=== PATIENT | male | born 1960 | race Caucasian/White ===

== ENCOUNTER 2018-02-10 00:28 | Outpatient (CLI) | payer BC, SELFPAY ==
--- NOTE | 2018-02-10 09:00 | DI.US_ITS ---
SYMPTOMS/DIAGNOSIS: ELEVATED PAS, R97.20 PROSTATE BIOPSY: Sonography was utilized by Dr. Guillory during the performance of a transrectal ultrasound-guided prostate biopsy. Prostatic volume was 21 cc. Please refer to the procedure report for complete details.
--- NOTE | 2018-02-10 09:30 | PROST_PTH ---
PATIENT: Marissa Rodríguez LOC: [facility] U#:[id number] AGE/SX: 57/M ROOM: RE02/10/[address]: Gianfranco Guillory MD : 1960 BED: DIS: 02/10/2018 SPEC #: [id number] RECD: 02/10/18 12:52 STATUS: SEDA REQ #: [id number] [place]: 02/10/18 09:[address]: Gianfranco Guillory DEPT: Surgical Specimen RECD BY: Karley Escobar ENTERED: 02/10/18 12:53 SP TYPE: PROST OTHR DR: Kervin Soto Tissues: 1 - PROSTATE NEEDLE BIOPSY 2 - PROSTATE NEEDLE BIOPSY 3 - PROSTATE NEEDLE BIOPSY 4 - PROSTATE NEEDLE BIOPSY 5 - PROSTATE NEEDLE BIOPSY 6 - PROSTATE NEEDLE BIOPSY 7 - PROSTATE NEEDLE BIOPSY 8 - PROSTATE NEEDLE BIOPSY 9 - PROSTATE NEEDLE BIOPSY 10 - PROSTATE NEEDLE BIOPSY 11 - PROSTATE NEEDLE BIOPSY 12 - PROSTATE NEEDLE BIOPSY Procedures: GROSS AND MICRO LEVEL 4 Comments: [id number]
--- NOTE | 2018-02-10 11:31 | ROE_ITS ---
DATE OF PROCEDURE: February 10, 2018 PRE-PROCEDURE DIAGNOSIS: Elevated PSA POST-PROCEDURE DIAGNOSIS: Same. PROCEDURE: Transrectal ultrasound of the prostate with ultrasound-guided biopsies. SURGEON: Gianfranco Guillory M.D. ANESTHESIA: Local. COMPLICATIONS: None. ESTIMATED BLOOD LOSS: Minimal. HISTORY: This is a 57-year-old gentleman who has a history of an elevated PSA level. His current le gina is up to 8.8 ng/mL He has no abnormal mass on digital rectal exam. He presents for a prostate biopsy. PROCEDURE: The patient was brought to the radiology suite on 02/10/18. He had been given a preproced ure antibiotic and mechanical bowel prep. Transrectal imaging of the prostate was then performed using a 7 MHz transducer. The prostate was im aged in transverse and longitudinal planes. The prostatic volume was calculated at 21 cc's. The prostate was small with no obvious hypoechoic ar eas. A few calcifications were seen in the transition zone. Periprostatic nerve blocks were performed. We then took a total of twelve ultrasound-guided biopsies . These biopsies were laterally directed. Each biopsy was sent to pathology for permanent section. He tolerated this procedure well with no complications. He will follow-up in one weeks' time to revi ew the biopsy results. cc: Kervin Soto M.D.
== END 2018-02-10 00:48 ==
PROVIDERS: PCP Urology; Visit Provider Urology
DX: C61 Malignant neoplasm of prostate (principal); R97.20 Elevated prostate specific antigen [PSA]
CPT/HCPCS: 55700; 76942; 88305

== ENCOUNTER 2018-03-06 01:28 | Outpatient (CLI) | payer BC, SELFPAY ==
--- NOTE | 2018-03-06 10:15 | DI.NM_ITS ---
SYMPTOMS/DIAGNOSIS: BASELINE STUDY, NEW DIAGNOSIS OF PROSTATE CANCER, C61 BONE SCAN: Whole body bone scan was performed with intravenous infusion of 25.6 mCi of technetium 99 labelled methylene diphosphonate. The patient reportedly has a history of recently diagnosed prostate carcinoma. Renal uptake is unremarkable. Bony uptake appears generally within normal limits with minimally increased uptake associated with proximal right rib consistent with degenerative change and mildly increased uptake in both hips also consistent with degenerative change. CONCLUSION: No specific evidence of bony metastatic disease. Radiographs of the thoracic spine recommended to correlate with focus of increased uptake, which appears to be associated with the proximal right 8th rib.
== END 2018-03-06 01:48 ==
PROVIDERS: PCP Physician Assistant; Visit Provider Urology
DX: C61 Malignant neoplasm of prostate (principal); Z12.89 Encounter for screening for malignant neoplasm of other sites; M16.0 Bilateral primary osteoarthritis of hip
CPT/HCPCS: 78306

== ENCOUNTER 2024-02-24 12:33 | Outpatient (CLI) | payer BC, SELFPAY ==
[2024-02-27 11:40] LABS: PSA, Ultrasensitive 0.06 ng/mL (<= 4.5)
== END 2024-02-24 12:34 | disposition home or self-care (01) ==
LOC: LBO 12:33
PROVIDERS: PCP Physician Assistant; Visit Provider Nurse Practitioner Gerontology
DX: C61 Malignant neoplasm of prostate (principal); R39.9 Unspecified symptoms and signs involving the genitourinary system; N52.9 Male erectile dysfunction, unspecified; N39.46 Mixed incontinence
CPT/HCPCS: 36415; 84153

== ENCOUNTER → 2025-02-22 10:16 | Outpatient (BNVA) | payer MEDICARE, SELFPAY | PROVIDERS: PCP Physician Assistant; Referring Provider Physician Assistant; Visit Provider Nurse Practitioner Gerontology | DX: N39.46 Mixed incontinence (principal); N52.9 Male erectile dysfunction, unspecified; C61 Malignant neoplasm of prostate; E11.9 Type 2 diabetes mellitus without complications; Z80.42 Family history of malignant neoplasm of prostate | CPT/HCPCS: 99214 ==

== ENCOUNTER 2025-02-22 11:11 | Outpatient (CLI) | payer MEDICARE, SELFPAY | END 2025-02-22 11:12 | disposition home or self-care (01) | LOC: LBO 11:12 | PROVIDERS: PCP Physician Assistant; Visit Provider Nurse Practitioner Gerontology | DX: C61 Malignant neoplasm of prostate (principal); N52.9 Male erectile dysfunction, unspecified | CPT/HCPCS: 36415; 84153 ==